=== PATIENT | female | born 1985 | race American Indian/Alaskan Native ===

== ENCOUNTER 2019-07-02 23:16 | Emergency (ER) | payer MEDICAID ==
[2019-07-02] MEDS ORDERED: ASPIRIN 325 MG TAB PO ONE (23:29)
--- NOTE | 2019-07-03 00:13 | XRay Report ---
CHEST 1 VIEW INDICATION / CLINICAL INFORMATION: Chest Pain. COMPARISON: 09/19/2018 FINDINGS: SUPPORT DEVICES: None. HEART / MEDIASTINUM: No significant abnormality. LUNGS / PLEURA: No significant pulmonary or pleural abnormality. No pneumothorax. ADDITIONAL FINDINGS: No significant additional findings. IMPRESSION: 1. No significant change Signer Name: Pavan Feldman MD Signed: 07/03/2019 12:08 AM Workstation Name: [id number]
[2019-07-03 00:16] LABS: Basophils % (Auto) 0.3 % (0.0-1.8); Eosinophils % (Auto) 0.6 % (0.0-4.3); Hematocrit 34.4 % (30.3-42.9); Hemoglobin 11.2 gm/dl (10.1-14.3); Lymphocytes # (Auto) 2.6 K/mm3 (1.2-5.4); Lymphocytes % (Auto) 35.1 % (13.4-35.0); Mean Corpuscular HGB Conc 32 % (30-34); Mean Corpuscular Volume 80 fl (79-97); Monocytes # (Auto) 0.7 K/mm3 (0.0-0.8); Monocytes % (Auto) 9.3 % (0.0-7.3); Platelet Count 278 K/mm3 (140-440); Red Cell Distribution Width 16.2 % (13.2-15.2)
[2019-07-03 00:38] LABS: BUN/Creatinine Ratio 12; Blood Urea Nitrogen 7 mg/dL (7-17); Calcium 8.9 mg/dL (8.4-10.2); Hemolysis Index 1
--- NOTE | 2019-07-03 01:43 | Emergency Department Report ---
ED Chest Pain HPI - General Chief Complaint: Chest Pain Stated Complaint: CP/R ARM NUMBNESS/EDEMA Time Seen by Provider: 07/03/19 01:18 Source: patient Mode of arrival: Ambulatory Limitations: No Limitations - History of Present Illness Initial Comments: Patient is a 33-year-old female presents emergency room with complaints of chest pain that began earlier today. She states that she has tingling in her right arm. She denies any nausea, vomiting, diarrhea, fever, shortness of breath, leg swelling, recent travel, recent surgery, history of cancer, hormone use. She has a past medical history of CHF, DM, HTN, sleep apnea, asthma. She states that she takes labetalol for her hypertension which was started in 2017 while she was but has not been changed. She states that she was admitted to [facility] couple weeks ago due to chest pain and saw her upkeep mechanic from [facility]. She denies any allergies to medications. - Related Data Home Medications Medication Instructions Recorded Confirmed Last Taken metFORMIN [Glucophage] 500 mg PO BID 05/16/15 05/16/15 Unknown Previous Rx's Medication Instructions Recorded Last Taken Type Furosemide [Lasix] 20 mg PO DAILY #30 tablet 02/21/13 Unknown Rx Omeprazole [Prilosec] 40 mg PO QDAY #10 capsule.dr 02/21/13 Unknown Rx Aspirin EC [Halfprin EC] 81 mg PO QDAY #30 tablet 05/19/15 Unknown Rx Prednisone [predniSONE 10 mg 10 mg PO .TAPER #1 tab.ds.pk 05/19/15 Unknown Rx (6-Day Pack, 21 Tabs)] Simvastatin (Nf) [Zocor TAB] 20 mg PO QHS #30 tablet 05/19/15 Unknown Rx cefUROXime [Ceftin] 250 mg PO Q12H #6 tablet 05/19/15 Unknown Rx Sulfamethoxazole/Trimethoprim 1 each PO BID 7 Days #14 tablet 09/19/18 Unknown Rx [Bactrim DS TAB] Allergies Allergy/AdvReac Type Severity Reaction Status Date / Time No Known Allergies Allergy Verified 05/16/15 03:56 Heart Score - HEART Score History: Slightly suspicious EKG: Normal Age: < 45 Risk factors: > 3 risk factors or hx of atherosclerotic disease Troponin: < normal limit HEART Score: 2 ED Review of Systems ROS: Stated complaint: CP/R ARM NUMBNESS/EDEMA Other details as noted in HPI Comment: All other systems reviewed and negative ED Past Medical Hx - Past Medical History Hx Hypertension: Yes (not taking any meds) Hx Congestive Heart Failure: Yes Hx Diabetes: Yes (diagnosed last year not taking meds) Hx Asthma: Yes Additional medical history: sleep apnea morbid obesity - Surgical History Past Surgical History?: Yes Additional Surgical History: 2018 - Social History Smoking Status: Never Smoker Substance Use Type: Alcohol - Medications Home Medications: Home Medications Medication Instructions Recorded Confirmed Last Taken Type Furosemide [Lasix] 20 mg PO DAILY #30 tablet 02/21/13 05/16/15 Unknown Rx Omeprazole [Prilosec] 40 mg PO QDAY #10 capsule.dr 02/21/13 05/16/15 Unknown Rx metFORMIN [Glucophage] 500 mg PO BID 05/16/15 05/16/15 Unknown History Aspirin EC [Halfprin EC] 81 mg PO QDAY #30 tablet 05/19/15 Unknown Rx Prednisone [predniSONE 10 mg 10 mg PO .TAPER #1 tab.ds.pk 05/19/15 Unknown Rx (6-Day Pack, 21 Tabs)] Simvastatin (Nf) [Zocor TAB] 20 mg PO QHS #30 tablet 05/19/15 Unknown Rx cefUROXime [Ceftin] 250 mg PO Q12H #6 tablet 05/19/15 Unknown Rx Sulfamethoxazole/Trimethoprim 1 each PO BID 7 Days #14 tablet 09/19/18 Unknown Rx [Bactrim DS TAB] ED Physical Exam - General Limitations: No Limitations General appearance: alert, in no apparent distress - Head Head exam: Present: atraumatic, normocephalic - Eye Eye exam: Present: normal appearance - ENT ENT exam: Present: mucous membranes moist - Respiratory Respiratory exam: Present: normal lung sounds bilaterally. Absent: respiratory distress, wheezes, rales, rhonchi, stridor, chest wall tenderness, accessory muscle use, decreased breath sounds, prolonged expiratory - Cardiovascular Cardiovascular Exam: Present: regular rate, normal rhythm, normal heart sounds. Absent: systolic murmur, diastolic murmur, rubs, gallop - Neurological Exam Neurological exam: Present: alert, oriented X3, CN II-XII intact, normal gait, other (5/5 strength in the BUE/BLE, sensation intact throughout, no facial asymmetry, normal gait, normal tandem walking, no pronator drift, no focal neuro deficit). Absent: motor sensory deficit - Psychiatric Psychiatric exam: Present: normal affect, normal mood - Skin Skin exam: Present: warm, dry, intact ED Course Vital Signs 07/02/19 07/03/19 07/03/19 23:28 01:48 03:05 Temperature 98.4 F Pulse Rate 88 85 Respiratory 16 20 Rate Blood Pressure 202/104 Blood Pressure 194/104 180/100 [Left] O2 Sat by Pulse 97 100 Oximetry AMOR score - Amor Score Age > 65: (0) No Aspirin use within the Past 7 Days: (0) No 3 or more CAD Risk Factors: (1) Yes 2 or more Angina events in past 24 hrs: (0) No Known CAD with more than 50% Stenosis: (0) No Elevated Cardiac Markers: (0) No ST Deviation Greater than 0.5mm: (0) No AMOR Score: 1 ED Medical Decision Making - Lab Data Result diagrams: 07/02/19 23:43 07/02/19 23:43 Lab Results 07/02/19 07/02/19 07/03/19 Range/Units 23:43 23:43 02:07 WBC 7.4 (4.5-11.0) K/mm3 RBC 4.30 (3.65-5.03) M/mm3 Hgb 11.2 (10.1-14.3) gm/dl Hct 34.4 (30.3-42.9) % MCV 80 (79-97) fl MCH 26 L (28-32) pg MCHC 32 (30-34) % RDW 16.2 H (13.2-15.2) % Plt Count 278 (140-440) K/mm3 Lymph % (Auto) 35.1 H (13.4-35.0) % [place] % (Auto) 9.3 H (0.0-7.3) % Eos % (Auto) 0.6 (0.0-4.3) % Baso % (Auto) 0.3 (0.0-1.8) % Lymph # 2.6 (1.2-5.4) K/mm3 [place] # 0.7 (0.0-0.8) K/mm3 Eos # 0.0 (0.0-0.4) K/mm3 Baso # 0.0 (0.0-0.1) K/mm3 Seg Neutrophils % 54.7 (40.0-70.0) % Seg Neutrophils # 4.1 (1.8-7.7) K/mm3 Sodium 140 (137-145) mmol/L Potassium 3.9 (3.6-5.0) mmol/L Chloride 101.1 (98-107) mmol/L Carbon Dioxide 24 (22-30) mmol/L Anion Gap 19 mmol/L BUN 7 (7-17) mg/dL Creatinine 0.6 L (0.7-1.2) mg/dL Estimated GFR > 60 ml/min BUN/Creatinine Ratio 12 % Glucose 218 H (65-100) mg/dL Calcium 8.9 (8.4-10.2) mg/dL Troponin T < 0.010 < 0.010 (0.00-0.029) ng/mL - EKG Data EKG shows normal: sinus rhythm Rate: normal - EKG Data 07/03/19 0100 LAD prolonged ME interval at 214 no STEMI 07/03/19 02:55 repeat EKG NSR HR 83 normal axis normal intervals normal QRS no STEMI no ST-T changes - Medical Decision Making Patient is a 33-year-old female presents emergency room with complaints of chest pain that began earlier today. She states that she has tingling in her right arm. She denies any nausea, vomiting, diarrhea, fever, shortness of breath, leg swelling, recent travel, recent surgery, history of cancer, hormone use. She has a past medical history of CHF, DM, HTN, sleep apnea, asthma. She states that she takes labetalol for her hypertension which was started in 2017 while she was but has not been changed. She states that she was admitted to [facility] couple weeks ago due to chest pain and saw her upkeep mechanic from [facility]. She denies any allergies to medications. Patient states that she was recently started on new medications by her upkeep mechanic but she does not know what they are. Vitals with elevated blood pressure, patient given hydralazine and blood pressure improved and patient was feeling better. Labs are stable. Troponin is negative x2. Heart score is 2. AMOR score is 1. Low risk for cardiac event. PERC criteria negative for PE. symptoms most likely elevated to her uncontrolled BP. initial EKG with LAD prolonged ME interval at 214. Repeat EKG is completely normal. Will not be adjusting patient's blood pressure medications since she only knows that she takes labetalol and do not want to interact with what ever else she is taking. Advised patient that she needs to take her medications as she was prescribed daily and to follow up with PCP and upkeep mechanic for medication titrations. advised pt to please take your medications as you are prescribed by your doctors. Keep a blood pressure log and take your blood pressure 3 times a day. Decrease your sodium intake. Incorporate daily exercise. Increase your water intake. Follow-up with primary care doctor. Follow-up with a upkeep mechanic. Return to the emergency room for any new or worsening symptoms. - Differential Diagnosis ACS, PE, costochrondritis, anemia, GERD, hypertensive urgency, obesity Critical care attestation.: If time is entered above; I have spent that time in minutes in the direct care of this critically ill patient, excluding procedure time. ED Disposition Clinical Impression: Tingling of right upper extremity, Elevated blood pressure reading Chest pain Qualifiers: Chest pain type: unspecified Qualified Code(s): R07.9 - Chest pain, unspecified Disposition: DC-01 TO HOME OR SELFCARE Is pt being admited?: No Does the pt Need Aspirin: No Condition: Stable Instructions: Chest Pain (ED), Chronic Hypertension (ED) Additional Instructions: Please take your medications as you are prescribed by your doctors. Keep a blood pressure log and take your blood pressure 3 times a day. Decrease your sodium intake. Incorporate daily exercise. Increase your water intake. Follow-up with primary care doctor. Follow-up with a upkeep mechanic. Return to the emergency room for any new or worsening symptoms. Referrals: PRIMARY MD MANDIE [Primary Care Provider] - 2-3 Days [facility] [Provider Group] - 2-3 Days Time of Disposition: 03:04 Print Language: FILIPINO
[2019-07-03] MEDS ORDERED: hydrALAZINE 100 MG TAB PO ONE (01:44)
[2019-07-03 03:05] VITALS: BP 180/100
== END 2019-07-03 03:05 | disposition home or self-care (01) ==
LOC: ED 23:16
DX: R20.2 Paresthesia of skin (principal); R07.89 Other chest pain; I11.0 Hypertensive heart disease with heart failure; I50.9 Heart failure, unspecified; E11.9 Type 2 diabetes mellitus without complications; J45.909 Unspecified asthma, uncomplicated; G47.30 Sleep apnea, unspecified; E66.01 Morbid (severe) obesity due to excess calories; Z68.44 Body mass index [BMI] 60.0-69.9, adult; Z98.890 Other specified postprocedural states; Z79.899 Other long term (current) drug therapy
CPT/HCPCS: 36415; 71045; 80048; 84484; 85025; 93005; 93010